=== PATIENT | female | born 1985 | race Caucasian/White ===

== ENCOUNTER 2017-06-23 04:24 | Emergency (ER) | payer BC ==
[~2017-06-23] VITALS: Ht 162.6 cm; Wt 63.6 kg
[~2017-06-23 04:24] MED LIST: ULTRAM 50MG TAB50 MG PO; VENTOLIN0.09 MG IH
[2017-06-23 04:27] VITALS: TEMP 99.5
[2017-06-23 05:06] LABS: BASO % 0.3 % (0.0-2.0); EOS % 0.6 % (0-4.0); GRAN # 4.9 (1.4-6.5); GRAN % 78.2 % (42.2-75.2); HEMATOCRIT 41.1 % (37.0-47.0); HEMOGLOBIN 13.5 g/dl (12.5-16.0); LYMPH # 0.8 (1.2-3.4); LYMPH % 13.4 % (20.0-51.0); MEAN CELL VOLUME 93 fl (80.0-100.0); MEAN CORPUSCULAR HEMOGLOBIN 31 pg (27.0-31.0); MEAN CORPUSCULAR HGB CONC 33 g/dl (33.0-37.0); MEAN PLATELET VOLUME 10.4 fl (7.4-10.4); MONO # 0.5 (0.1-0.6); MONO % 7.3 % (1.7-9.3); PLATELET COUNT 166 K/mm3 (130-400); RED BLOOD COUNT 4.43 M/mm3 (4.10-5.30); WHITE BLOOD COUNT 6.3 K/mm3 (4.8-10.8)
[2017-06-23 05:15] LABS: ADJUSTED CALCIUM 9.5 mg/dL (8.4-10.2); ALBUMIN 4.7 gm/dL (3.5-5.0); BILIRUBIN,TOTAL 0.3 mg/dL (0.0-1.0); CALCIUM 10.1 mg/dL (8.4-10.2); CREATININE, serum 0.85 mg/dL (0.52-1.25); POTASSIUM 4.3 mmol/L (3.4-5.0); TOTAL PROTEIN 7.6 gm/dL (6.4-8.2)
[2017-06-23 07:53] VITALS: BP 113/70; PULSE 84
== END 2017-06-23 07:54 | disposition home or self-care (01) ==
LOC: COL.ER 04:24
PROVIDERS: Emergency Medicine
DX: R51 Headache (principal); Z32.02 Encounter for pregnancy test, result negative
CPT/HCPCS: J3010; J7030

== ENCOUNTER 2018-04-13 11:52 | Emergency (ER) | payer OTHER, BC ==
[~2018-04-13] VITALS: Ht 160 cm; Wt 70.5 kg
[2018-04-13 11:54] VITALS: BP 118/66; PULSE 66; TEMP 98.3
[2018-04-13] MEDS ORDERED: AMOXICILLIN 8751 TAB PO (13:04)
== END 2018-04-13 14:06 | disposition home or self-care (01) ==
LOC: COL.ER 11:52
DX: S61.552A Open bite of left wrist, initial encounter (principal); S41.151A Open bite of right upper arm, initial encounter; W54.0XXA Bitten by dog, initial encounter; Y92.009 Unspecified place in unspecified non-institutional (private) residence as the place of occurrence of the external cause

== ENCOUNTER → 2019-05-28 | Outpatient (CLI) | payer BC, OTHER ==
[~2019-05-28] VITALS: Ht 165.1 cm; Wt 89.8 kg
[~2019-05-28] MED LIST changes: +AMOXICILLIN 8751 TAB PO
[2019-05-28 10:37] VITALS: BP 104/70; PULSE 64
== END ==
LOC: LIGHT 09:54
DX: E66.9 Obesity, unspecified (principal); F50.81 Binge eating disorder; Z71.3 Dietary counseling and surveillance
CPT/HCPCS: G0463

== ENCOUNTER → 2019-06-23 | Outpatient (CLI) | payer BC, OTHER | LOC: LIGHT 14:35 | DX: F50.81 Binge eating disorder (principal); F32.9 Major depressive disorder, single episode, unspecified; G47.00 Insomnia, unspecified; E66.9 Obesity, unspecified; Z68.32 Body mass index [BMI] 32.0-32.9, adult; Z71.3 Dietary counseling and surveillance ==

== ENCOUNTER → 2019-06-25 | Outpatient (CLI) | payer BC, OTHER ==
[~2019-06-25] MED LIST changes: +BUSPAR5 MG; +DESYREL 50MG50 MG PO
== END ==
LOC: LIGHT 09:59
DX: F50.81 Binge eating disorder (principal); F32.9 Major depressive disorder, single episode, unspecified; G47.00 Insomnia, unspecified; E66.9 Obesity, unspecified; Z68.32 Body mass index [BMI] 32.0-32.9, adult; Z71.3 Dietary counseling and surveillance

== ENCOUNTER → 2019-06-26 | Outpatient (CLI) | payer BC, OTHER ==
[~2019-06-26] VITALS: Ht 165.1 cm; Wt 89.4 kg
[2019-06-26 16:29] VITALS: BP 108/66; PULSE 108
== END ==
LOC: LIGHT 11:28
DX: F50.81 Binge eating disorder (principal); F32.9 Major depressive disorder, single episode, unspecified; G47.00 Insomnia, unspecified; E66.9 Obesity, unspecified; Z68.32 Body mass index [BMI] 32.0-32.9, adult; Z71.3 Dietary counseling and surveillance
CPT/HCPCS: G0463

== ENCOUNTER → 2019-07-14 | Outpatient (CLI) | payer BC, OTHER | LOC: BHSO 09:59 | DX: F41.1 Generalized anxiety disorder (principal) ==

== ENCOUNTER → 2019-07-25 | Outpatient (CLI) | payer BC, OTHER | LOC: BHSO 09:59 | DX: F41.1 Generalized anxiety disorder (principal) ==

== ENCOUNTER → 2019-07-31 | Outpatient (CLI) | payer BC, OTHER ==
[~2019-07-31] VITALS: Ht 165.1 cm; Wt 90.9 kg
[~2019-07-31] MED LIST changes: +VYVANSE30 MG PO
[2019-07-31 10:58] VITALS: BP 106/60; PULSE 72
== END ==
LOC: LIGHT 10:32
DX: F50.81 Binge eating disorder (principal); F32.9 Major depressive disorder, single episode, unspecified; G47.00 Insomnia, unspecified; E66.9 Obesity, unspecified; Z68.33 Body mass index [BMI] 33.0-33.9, adult; Z71.3 Dietary counseling and surveillance
CPT/HCPCS: G0463

== ENCOUNTER → 2019-08-08 | Outpatient (CLI) | payer BC, OTHER | LOC: BHSO 10:13 | DX: F41.1 Generalized anxiety disorder (principal) ==

== ENCOUNTER → 2019-09-05 | Outpatient (CLI) | payer BC, OTHER ==
[~2019-09-05] MED LIST changes: -VYVANSE30 MG PO; +VYVANSE50 MG PO
== END ==
LOC: BHSO 10:00
DX: F41.1 Generalized anxiety disorder (principal)

== ENCOUNTER → 2019-10-23 | Outpatient (CLI) | payer OTHER ==
[~2019-10-23] VITALS: Ht 165.1 cm; Wt 83.5 kg
[2019-10-23 15:05] VITALS: BP 106/66; PULSE 79
== END ==
LOC: LIGHT 14:53
DX: Z68.30 Body mass index [BMI] 30.0-30.9, adult (principal); F50.81 Binge eating disorder; G47.00 Insomnia, unspecified; F32.9 Major depressive disorder, single episode, unspecified
CPT/HCPCS: G0463

== ENCOUNTER → 2019-10-24 | Outpatient (CLI) | payer BC, OTHER | LOC: BHSO 12:57 | DX: F41.1 Generalized anxiety disorder (principal) ==

== ENCOUNTER → 2020-03-25 | Outpatient (CLI) | payer OTHER ==
[~2020-03-25] VITALS: Ht 165.1 cm; Wt 82.6 kg
[2020-03-25 16:10] VITALS: BP 126/74; PULSE 79
== END ==
LOC: LIGHT 11-27 11:45
DX: E66.8 Other obesity (principal); Z68.30 Body mass index [BMI] 30.0-30.9, adult; F50.81 Binge eating disorder; G47.00 Insomnia, unspecified
CPT/HCPCS: G0463

== ENCOUNTER → 2020-05-06 | Outpatient (CLI) | payer OTHER ==
[~2020-05-06] VITALS: Ht 165.1 cm; Wt 81.4 kg
[~2020-05-06] MED LIST changes: -VYVANSE50 MG PO; +VYVANSE60 MG PO
[2020-05-06 10:05] VITALS: BP 96/70; PULSE 84
== END ==
LOC: LIGHT 10:06
DX: E66.8 Other obesity (principal); Z68.29 Body mass index [BMI] 29.0-29.9, adult
CPT/HCPCS: G0463

== ENCOUNTER → 2020-06-24 | Outpatient (CLI) | payer OTHER ==
[~2020-06-24] VITALS: Ht 165.1 cm; Wt 80.5 kg
[2020-06-24 16:25] VITALS: BP 110/76; PULSE 88
== END ==
LOC: LIGHT 15:55
DX: E66.8 Other obesity (principal); Z68.29 Body mass index [BMI] 29.0-29.9, adult; G47.00 Insomnia, unspecified; F50.81 Binge eating disorder
CPT/HCPCS: G0463

== ENCOUNTER → 2021-02-11 | Outpatient (CLI) | payer BC ==
[~2021-02-11] MED LIST changes: +PERCOCET 325 MG1 TA2 PO
== END ==
LOC: COL.RAD 09:21
DX: S73.192A Other sprain of left hip, initial encounter (principal)
CPT/HCPCS: A9585; J3301; Q9967

== ENCOUNTER 2021-05-25 20:56 | Emergency (ER) | payer BC ==
[~2021-05-25] VITALS: Ht 162.6 cm; Wt 79.5 kg
[~2021-05-25 20:56] MED LIST changes: -PERCOCET 325 MG1 TA2 PO
[2021-05-25 21:00] VITALS: TEMP 98.6
[2021-05-25] MEDS ORDERED: AMOXICILLIN 8751 TAB PO (23:22)
[2021-05-26 00:01] VITALS: BP 154/98; PULSE 78
[2021-05-26] MEDS ORDERED: PERCOCET 325 MG1 TA2 PO (00:06)
== END 2021-05-26 00:01 | disposition home or self-care (01) ==
LOC: COL.ER 20:56
DX: S61.452A Open bite of left hand, initial encounter (principal); S61.451A Open bite of right hand, initial encounter; F41.9 Anxiety disorder, unspecified; Z23 Encounter for immunization; Z79.899 Other long term (current) drug therapy; W54.0XXA Bitten by dog, initial encounter